=== PATIENT | male | born 1995 | race Hispanic/Latino ===

== ENCOUNTER 2017-04-16 22:29 | Emergency (ER) | payer SELFPAY ==
[2017-04-16] MEDS ORDERED: Lorazepam 2 MG/ML VIAL ONE (23:38)
[2017-04-17] MEDS ORDERED: Diazepam 5 MG TAB ONE (00:31)
== END 2017-04-17 01:02 | disposition home or self-care (01) ==
LOC: ERS 22:29
DX: F41.9 Anxiety disorder, unspecified (principal); F17.210 Nicotine dependence, cigarettes, uncomplicated
CPT/HCPCS: 96372; J2060